=== PATIENT | female | born 1990 | race Caucasian/White ===

== ENCOUNTER 2018-06-30 21:25 | Emergency (ER) | payer OTHER ==
[2018-06-30 21:32] VITALS: BP 144/74
--- NOTE | 2018-06-30 21:39 | ED Physician Documentation ---
PD HPI LOWER EXT INJURY - Stated complaint Stated Complaint: ANKLE INJURY - Chief complaint Chief Complaint: Trauma Ext - History obtained from History obtained from: Patient - History of Present Illness PD HPI LOW EXT INJURY LOCATION: Right (She rolled her right ankle last night and felt a pop. She is able to walk and bear weight but had increased swelling today.) Review of Systems Constitutional: reports: Reviewed and negative Throat: reports: Reviewed and negative Cardiac: reports: Reviewed and negative PD PAST MEDICAL HISTORY - Past Medical History Past Medical History: No - Past Surgical History Past Surgical History: Yes - Present Medications Home Medications: Ambulatory Orders Medication Instructions Recorded Confirmed No Known Home Medications 06/30/18 06/30/18 - Allergies Allergies/Adverse Reactions: Allergies Allergy/AdvReac Type Severity Reaction Status Date / Time No Known Drug Allergies Allergy Verified 06/30/18 21:38 - Social History Does the pt smoke?: Yes Smoking Status: Current every day smoker Does the pt drink ETOH?: Yes Does the pt have substance abuse?: No - Immunizations Immunizations are current?: Yes - POLST Patient has POLST: No PD ED PE NORMAL - Vitals Vital signs reviewed: Yes - General General: Alert and oriented X 3, No acute distress - Extremities Extremities: Other (Right ankle is swollen and tender over the lateral malleolus. No medial malleolar or significant foot tenderness. No proximal fibular tenderness. Normal pedal pulses and sensation.) - Neuro Neuro: Alert and oriented X 3, Normal speech Results - Vitals Vitals: Vital Signs - 24 hr 06/30/18 21:28 Temperature 36.0 C L Heart Rate 81 Respiratory 16 Rate Blood Pressure 144/74 H O2 Saturation 100 Oxygen O2 Source Room air PD MEDICAL DECISION MAKING - Sepsis Event Vital Signs: Vital Signs - 24 hr 06/30/18 21:28 Temperature 36.0 C L Heart Rate 81 Respiratory 16 Rate Blood Pressure 144/74 H O2 Saturation 100 Oxygen O2 Source Room air Departure - Departure Disposition: 01 Home, Self Care Clinical Impression: Right ankle sprain Qualifiers: Encounter type: initial encounter Involved ligament of ankle: calcaneofibular ligament Qualified Code(s): S93.411A - Sprain of calcaneofibular ligament of right ankle, initial encounter Condition: Good Record reviewed to determine appropriate education?: Yes Instructions: ED Sprain Ankle W X Ray Comments: Recheck with your doctor 1-2 weeks if not better. Your blood pressure was elevated today on check into the emergency department. This does not mean that you have hypertension, it is a common phenomenon to come to the emergency department and have elevated blood pressure. I recommend that you see your primary care physician within the week to have it rechecked when you are feeling better.
--- NOTE | 2018-06-30 22:05 | XRAY Report ---
Reason: ankle inj Procedure Date: 06/30/2018 Accession Number: [id number] / [id number] Procedure: XR - Ankle 3 View RT CPT Code: FULL RESULT: EXAM: RIGHT ANKLE RADIOGRAPHY EXAM DATE: 06/30/2018 09:52 PM. CLINICAL HISTORY: Right ankle pain after inversion injury. COMPARISON: None. TECHNIQUE: 3 views. FINDINGS: Bones: Normal. No fractures or bone lesions. Joints: Normal alignment. The ankle mortise is symmetric. No tibiotalar joint effusion. Soft Tissues: Mild lateral soft tissue swelling. IMPRESSION: No acute bony abnormality. RADIA
== END 2018-06-30 22:19 | disposition home or self-care (01) ==
LOC: ED 21:25
DX: S93.411A Sprain of calcaneofibular ligament of right ankle, initial encounter (principal); X50.1XXA Overexertion from prolonged static or awkward postures, initial encounter; W18.30XA Fall on same level, unspecified, initial encounter; Y93.6A Activity, physical games generally associated with school recess, summer camp and children; R03.0 Elevated blood-pressure reading, without diagnosis of hypertension; F17.200 Nicotine dependence, unspecified, uncomplicated
CPT/HCPCS: 99283

== ENCOUNTER 2019-06-18 10:01 | Outpatient (CLI) | payer OTHER ==
[2019-06-18 10:30] LABS: BASOPHILS % (AUTO) 0.2 %; EOSINOPHILS # (AUTO) 0.1 10^3/uL (0.0-0.7); EOSINOPHILS % (AUTO) 0.6 %; HGB - HEMOGLOBIN 12.2 g/dL (12.0-16.0); LYMPHOCYTES # (AUTO) 1.4 10^3/uL (1.5-3.5); LYMPHOCYTES % (AUTO) 17.1 %; MEAN CORPUSCULAR HEMOGLOBIN 29.7 pg (27.0-31.0); MEAN CORPUSCULAR HGB CONC 33.2 g/dL (32.0-36.0); MEAN CORPUSCULAR VOLUME 89.3 fL (81.0-99.0); MEAN PLATELET VOLUME 11.4 fL (7.9-10.8); MONOCYTES # (AUTO) 0.7 10^3/uL (0.0-1.0); MONOCYTES % (AUTO) 8.5 %; NEUTROPHILS # (AUTO) 5.9 10^3/uL (1.5-6.6); NEUTROPHILS % (AUTO) 72.1 %; PLT - PLATELET COUNT 160 10^3/uL (130-450); RED BLOOD COUNT 4.11 10^6/uL (4.20-5.40); RED CELL DISTRIBUTION WIDTH 13.6 % (12.0-15.0); WHITE BLOOD COUNT 8.2 x10^3/uL (4.8-10.8)
[2019-06-18 10:46] LABS: CREATININE 0.6 mg/dL (0.4-1.0)
--- NOTE | 2019-06-18 11:14 | CONSULTATION NOTE ---
Consultation Report: Consult requested for new OB pt, G2,P1 39 week transfer from [facility]. Hx of previous C/S where anesthesia was unable to place effective surgical regional anesthesia for delivery (attempted spinal and epidural multiple times, pt required GETA). Pt has a history of thoracic spine issues requiring multiple steroid injections in the past. Denies lumbar issues. MP2 airway, teeth intact, no other anesthetic issues identified. Pt had questions about what to expect with spinal/epidural as she doesn't really remember much about being in the OR. Explained the process, timeline of events, medications used and why, as well as what to expect with dad in the OR room.
== END 2019-06-18 10:02 | disposition home or self-care (01) ==
LOC: LAB 10:01
PROVIDERS: ATTEND Obstetrics & Gynecology
DX: O34.211 Maternal care for low transverse scar from previous cesarean delivery (principal)
CPT/HCPCS: 36415; 80048; 85025; 86850; 86900; 86901

== ENCOUNTER 2019-06-25 06:31 | Inpatient (IN) | payer OTHER ==
--- NOTE | 2019-06-22 08:28 | PREOP HISTORY & PHYSICAL ---
DATE OF SERVICE: 06/18/2019 Physician: Eitan Villagomez MD IDENTIFICATION: A 28-year-old G3, P1, AB1, female whose due date is 06/29. CHIEF COMPLAINT: Previous section. HISTORY OF PRESENT ILLNESS: Patient had her care done at the [facility] in [place]. Because of restrictions, she is unable to have a repeat section done. She is transferring here. Her due date is 06/29. She started her care at 1 month. She reports having an unrem arkable course. She had a previous section done for distress. There was so me difficulty with anesthesia during the procedure. She has some anxiety regarding this. PAST MEDICAL HISTORY 1. Positive for a bulging disk in the neck. 2. She also had mild preeclampsia with her first . PAST SURGICAL HISTORY 1. section x1. 2. She has also had a first rib resection on the left-hand side for a thoracic outlet. 3. [place] teeth. ALLERGIES: NONE KNOWN. CURRENT MEDICATIONS 1. Baby aspirin daily. 2. vitamins. 3. Lidocaine patch. 4. Tylenol. 5. Tums. HABITS: Patient smokes 8 cigarettes per day and has been counseled that this should be ceased. She denies use of any street or addictive drugs, or THC. 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 FAMILY HISTORY: Positive for type 2 diabetes, heart disease, bipolar disorder. PHYSICAL EXAMINATION GENERAL: Patient is a well-developed, well-nourished white female. She is in no acute distress at t his time. VITAL SIGNS: Blood pressure 122/70. HEENT: Pupils are equal and round. Extraocular muscles are intact. Thyroid is not palpably enlarge d. HEART: Regular rate and rhythm without murmurs. LUNGS: Lung banks are clear without rales or wheezes. BACK: No spinal or CVA tenderness noted. There is a gravid uterus measures 40 cm. heart tone s were heard at 150 beats per minute. She has a Pfannenstiel incision, which is well healed. IMPRESSION 1. A 29-week, G3, P1, AB1 female, currently due date is 06/29/2019. This makes her 38 weeks and 4 d ays. 2. Previous section. 3. History of preeclampsia. PLAN: We will perform repeat low transverse section. Risks and benefits have been explaine d to patient including those, but not limited to bleeding, infection, injury to pelvic organs, which include the uterus, tubes, ovaries, bowel, bladder, ureters. She is aware of the potential for DVT w ith PE as well as postoperative adhesions, which could cause pain, bowel obstruction, and infertility . TD: 06/18/2019 10:01
[2019-06-25] MEDS ORDERED: CITRIC ACID/SODIUM CITRATE 15 ML UDC PO ONE ×2 (06:49→07:16)
[2019-06-25] MEDS ORDERED: LACTATED RINGERS 1,000 ML IV ONE ×4 (06:50→09:31)
--- NOTE | 2019-06-25 06:59 | ANESTHESIA ---
Pre-Anesthesia VS, & Labs - Diagnosis previous c/s - Procedure section Height 6 ft 1 in Weight (kg) 129.274 kg Body Mass Index 26.4 - NPO >8 hours - Is Patient ?: Yes - Lab Results Lab results reviewed: Yes Home Medications and Allergies Active Medications Cefazolin Sodium 2 gm/ Sodium (Chloride) 100 mls @ 200 mls/hr IV ONCE ONE Stop: 06/25/19 07:59 Lactated Ringer's (Lr) 1,000 mls @ 0 mls/hr IV .Q0M TI No Known Home Medications 06/30/18 Allergies/Adverse Reactions: Allergies Allergy/AdvReac Type Severity Reaction Status Date / Time No Known Drug Allergies Allergy Verified 06/30/18 21:38 Anes History & Medical History - Anesthetic History Anesthesia Complications: reports: No previous complications Family history of Anesthesia Complications: Denies Family history of Malignant Hyperthermia: Denies - Medical History Smoking Status: Current every day smoker Psychosocial: reports: Anxiety (with procedures) - Surgical History Gynecologic: section Orthopedic: Other (thoracic vertebrea steroid injections) Exam General: Alert, Oriented x3, Cooperative Dental: WNL Mouth Openin Fingerbreadth Neck Mobility: Normal Mallampati classification: II Respiratory: Lungs clear, Normal breath sounds, Other (mostly dry cough today) Cardiovascular: Regular rate Neurological: Normal speech Mental/Cognitive Status: Alert/Oriented X3, Normal for patient Cognitive Status: Within normal limits Plan Anesthesia Type: General (backup), Spinal Consent for Procedure(s) Verified and Reviewed: Yes Code Status: Attempt Resuscitation ASA classification: 2-Mild systemic disease Is this case an emergency?: No
[2019-06-25] MEDS ORDERED: LACTATED RINGERS 1,000 ML IV SCH ×2 (07:00→10:00)
[2019-06-25 07:22] LABS: BASOPHILS % (AUTO) 0.2 %; EOSINOPHILS # (AUTO) 0.1 10^3/uL (0.0-0.7); EOSINOPHILS % (AUTO) 0.6 %; HGB - HEMOGLOBIN 12.1 g/dL (12.0-16.0); LYMPHOCYTES # (AUTO) 1.8 10^3/uL (1.5-3.5); LYMPHOCYTES % (AUTO) 21.8 %; MEAN CORPUSCULAR HEMOGLOBIN 29.6 pg (27.0-31.0); MEAN CORPUSCULAR HGB CONC 33.3 g/dL (32.0-36.0); MEAN CORPUSCULAR VOLUME 88.8 fL (81.0-99.0); MEAN PLATELET VOLUME 11.1 fL (7.9-10.8); MONOCYTES # (AUTO) 0.7 10^3/uL (0.0-1.0); MONOCYTES % (AUTO) 7.8 %; NEUTROPHILS # (AUTO) 5.7 10^3/uL (1.5-6.6); NEUTROPHILS % (AUTO) 67.9 %; PLT - PLATELET COUNT 154 10^3/uL (130-450); RED BLOOD COUNT 4.09 10^6/uL (4.20-5.40); RED CELL DISTRIBUTION WIDTH 13.5 % (12.0-15.0); WHITE BLOOD COUNT 8.4 x10^3/uL (4.8-10.8)
[2019-06-25] MEDS ORDERED: ceFAZolin 2 GM in SODIUM CHLORIDE 0.9% 100ML 100 ML IV ONE (07:30)
[2019-06-25 09:05] LABS: CALCIUM 9.3 mg/dL (8.5-10.3); CREATININE 0.7 mg/dL (0.4-1.0)
[2019-06-25] MEDS ORDERED: OXYTOCIN/SODIUM CHLORIDE 500 ML IV PRN (09:55)
[2019-06-25] MEDS ORDERED: diphenhydrAMINE 25 MG CAPSULE PO PRN (09:55)
[2019-06-25] MEDS ORDERED: ONDANSETRON 4 MG/2 ML VIAL IVP PRN (09:55)
--- NOTE | 2019-06-25 10:01 | OPERATIVE REPORT ---
Operative Report - General Admit Date: 06/25/19 Procedure Date: 06/25/19 Planned Procedure: repeat LT C/S Pre-Op Diagnosis: term cyesis prior C/S Procedure Performed: repeat LTC/S Post Op Diagnosis: Same - Procedure Note Primary Surgeon: Eitan Villagomez MD Secondary Surgeon: Marichuy Mejia MD Anesthesia Provider: Eleazar Saeed CRNA Anesthesia Technique: Spinal Pathology: none IV Fluids (mL): 1,100 Estimated Blood Loss (mL): 700 Urine Output (mL): 200 Findings: Live female TED, clear amnionic fluid - Other Other Information/Narrative: #[id number]
--- NOTE | 2019-06-25 10:59 | OPERATIVE REPORT ---
DATE OF SERVICE: 06/25/2019 Physician: Eitan Villagomez MD PREOPERATIVE DIAGNOSES 1. Previous section. 2. Term cyesis 39 weeks. POSTOPERATIVE DIAGNOSES 1. Previous section. 2. Term cyesis 39 weeks. PROCEDURE PERFORMED: Repeat low transverse section. SURGEON: Eitan Villagomez MD MEDIA INTERN: Marichuy Bass MD ANESTHESIA: Spinal. COB SAWYER: Eleazar Saeed CRNA ESTIMATED BLOOD LOSS: 700 mL IV FLUIDS: 1100 mL URINE OUTPUT: 200 mL FINDINGS: Live vigorous female infant, vertex presentation, left occiput anterior, clear amniotic fluid, nuchal cord x2. PROCEDURE: Following adequate spinal anesthesia, patient was placed in dorsal lithotomy position. A roll was then placed under the right hip. At this point, a [place] catheter was placed under sterile conditions. She was then prepped and draped in the usual fashion. Timeout was performed in which concerns were addressed. At this point, a Pfannenstiel incision was accomplished using a #10 blade and bandage scissors. The fascia was incised transversely and then carried laterally with Bazan scissors. The rectus was bluntly dissected off the fascia in the midline. It was then split along the midline, and the peritoneal cavity was entered high. Care was taken to avoid injury to the bladder or abdominal contents. At this point, a bladder flap was developed using Metzenbaum scissors. A low transverse uterine incision was accomplished using a #10 blade, bandage scissors, as well as a finger spread technique. The head of the infant was lifted out of the pelvis. There was a nuchal cord x2 encountered. These were reduced and the remainder of the infant was delivered without difficulty. The oropharynx was bulb suctioned as well as nose. The cord was allowed to pulsate for roughly 30 seconds, then clamped with the umbilical clamp as well as a Pean. This was then divided using Bazan scissors. The was handed to the nursery team that was standing by. At this point, cord blood samples were obtained. The uterus was exteriorized and the placenta, which was attached posteriorly was delivered, both manually. The interior portion of the uterus was cleansed with a dry lap. The cervix was dilated with a ring forceps. The uterine incision was closed using a running locking suture of 0 Vicryl with an imbricating layer of 0 Vicryl. Two extra [id number] sutures were used for additional hemostasis. The incision was inspected, and no further bleeding was noted. The cul-de-sac was then tipped forward and then the cul-de-sac was irrigated out. The estimated blood loss was 700 mL at this time. The cul-de-sac, gutters, and the incision were all irrigated with copious amounts of sterile saline. The uterus was delivered back in the abdominal cavity. At this point, the incision was still hemostatic. There was an adhesion of the omentum to the anterior abdominal wall on the left-hand side. This was dissected free, following which the peritoneal defect was closed utilizing 2-0 Vicryl. The peritoneum was closed using 2-0 Vicryl. The rectus was then reapproximated with 2-0 Vicryl. This was irrigated. No further bleeding was noted. The fascia was closed utilizing a looped PDS. Subcutaneous tissue was closed utilizing 2-0 Vicryl and the incision itself was closed using 4-0 Monocryl. Wound VAC was then applied with evidence of good seal. The patient tolerated the procedure well and was taken to recovery in stable condition. Both sponge and needle counts were correct. TD: 06/25/2019 10:33 ESSENCE
[2019-06-25] MEDS ORDERED: METOCLOPRAMIDE 10 MG/2 ML VIAL IVP PRN (11:56)
[2019-06-25] MEDS ORDERED: diphenhydrAMINE INJ 50 MG/ML VIAL IVP PRN (11:57)
[2019-06-25] MEDS: NALBUPHINE 10 MG/ML AMP IVP PRN ×2 (12:08→18:37)
[2019-06-25] MEDS: SODIUM CHLORIDE FLUSH 0.9% 10 ML SYRINGE IVP SCH ×2 (12:08→20:36)
[2019-06-25] MEDS: ACETAMINOPHEN 500 MG TABLET PO SCH ×2 (12:30→20:37)
[2019-06-25] MEDS: KETOROLAC 30 MG/ML VIAL IVP SCH ×3 (13:02→20:36)
[2019-06-25] MEDS: SIMETHICONE CHEW 80 MG TABLET PO SCH ×2 (14:06→18:37)
[2019-06-25] MEDS ORDERED: OXYTOCIN/DEXTROSE 5 % 30 UNIT/500 ML BAG IV PRN (14:14)
[2019-06-25] MEDS: SODIUM CHLORIDE FLUSH 0.9% 10 ML SYRINGE IVP PRN ×2 (15:04→18:38)
[2019-06-25] MEDS: DOCUSATE SODIUM 100 MG CAPSULE PO SCH (20:52)
[2019-06-26] MEDS: ACETAMINOPHEN 500 MG TABLET PO SCH ×3 (01:57→17:56)
[2019-06-26] MEDS: KETOROLAC 30 MG/ML VIAL IVP SCH (03:57)
[2019-06-26 06:18] LABS: BASOPHILS % (AUTO) 0.1 %; EOSINOPHILS % (AUTO) 0.5 %; LYMPHOCYTES # (AUTO) 1.3 10^3/uL (1.5-3.5); LYMPHOCYTES % (AUTO) 16.2 %; MEAN CORPUSCULAR HEMOGLOBIN 29.5 pg (27.0-31.0); MEAN CORPUSCULAR HGB CONC 32.7 g/dL (32.0-36.0); MEAN CORPUSCULAR VOLUME 90.3 fL (81.0-99.0); MEAN PLATELET VOLUME 11.3 fL (7.9-10.8); MONOCYTES # (AUTO) 0.8 10^3/uL (0.0-1.0); MONOCYTES % (AUTO) 9.1 %; NEUTROPHILS % (AUTO) 72.8 %; PLT - PLATELET COUNT 131 10^3/uL (130-450); RED BLOOD COUNT 3.39 10^6/uL (4.20-5.40); RED CELL DISTRIBUTION WIDTH 13.3 % (12.0-15.0); WHITE BLOOD COUNT 8.2 x10^3/uL (4.8-10.8)
[2019-06-26] MEDS: SIMETHICONE CHEW 80 MG TABLET PO SCH ×3 (08:33→21:55)
[2019-06-26] MEDS: DOCUSATE SODIUM 100 MG CAPSULE PO SCH ×2 (08:33→21:55)
--- NOTE | 2019-06-26 09:53 | PROVIDER PROGRESS NOTE ---
Subjective - General Admit Date: 06/25/19 Procedure Date: 06/25/19 Post Op Days: 1 Procedure Performed: LTC/S - Review of Systems Wound/Incisions: positive: Dressing dry and intact General: positive: No symptoms (Pain /10, notes good pain control) Objective - Patient Data Reviewed Vital Signs: Yes Vital Signs: Vital Signs x48h Temp Pulse Resp BP Pulse Ox 06/26/19 08:40 36.5 C 94 18 129/64 97 Weight: Weight 06/24/19 06/25/19 06/26/19 23:59 23:59 23:59 Weight (kg) 129.274 kg Intake & Output: Intake and Output Totals x24h 06/24/19 06/25/19 06/26/19 23:59 23:59 23:59 Intake Total 4061.000 2000 Output Total 1410 850 Balance 2651.000 1150 - Lab Results Lab Results: 06/26/19 06:00 06/25/19 07:06 Other Lab Results: Lab Results x24hrs 06/26/19 Range/Units 06:00 WBC 8.2 (4.8-10.8) x10^3/uL RBC 3.39 L (4.20-5.40) 10^6/uL Hgb 10.0 L (12.0-16.0) g/dL Hct 30.6 L (37.0-47.0) % MCV 90.3 (81.0-99.0) fL MCH 29.5 (27.0-31.0) pg MCHC 32.7 (32.0-36.0) g/dL RDW 13.3 (12.0-15.0) % Plt Count 131 (130-450) 10^3/uL MPV 11.3 H (7.9-10.8) fL Neut # (Auto) 6.0 (1.5-6.6) 10^3/uL Lymph # (Auto) 1.3 L (1.5-3.5) 10^3/uL [place] # (Auto) 0.8 (0.0-1.0) 10^3/uL Eos # (Auto) 0.0 (0.0-0.7) 10^3/uL Baso # (Auto) 0.0 (0.0-0.1) 10^3/uL Absolute Nucleated RBC 0.00 x10^3/uL Nucleated RBC % 0.0 /100WBC - Current Medications Current Medications: Current Medications Generic Name Dose Route Start Last Admin Trade Name Christina PRN Reason Stop Dose Admin Acetaminophen 1,000 mg 06/25/19 10:00 06/26/19 09:49 Tylenol PO 1,000 mg Q8H TI Administration Diphenhydramine HCl 25 mg 06/25/19 09:55 06/25/19 10:02 Benadryl PO 12.5 mg Q6H PRN Administration ITCHING Docusate Sodium 100 mg 06/25/19 21:00 06/26/19 08:33 Colace 100mg Capsule PO 100 mg BID TI Administration Lactated Ringer's 1,000 mls @ 0 mls/hr 06/25/19 07:00 06/25/19 08:18 Lr IV Infused .Q0M TI Infusion TKO Lactated Ringer's 1,000 mls @ 100 mls/hr 06/25/19 10:00 06/25/19 17:17 Lr IV Infused .Q10H TI Infusion Simethicone 80 mg 06/25/19 14:00 06/26/19 08:33 Mylicon PO 80 mg TID TI Administration Sodium Chloride 10 ml 06/25/19 09:55 06/25/19 18:38 Normal Saline Flush 0.9% IVP 10 ml PRN PRN Administration NEEDED PER PROVIDER ORDERS Sodium Chloride 10 ml 06/25/19 17:00 06/25/19 20:36 Normal Saline Flush 0.9% IVP 10 ml 0100,0900,1700 TI Administration - Physical Exam Wound/Incisions: positive: Dressing dry and intact, No drainage General Appearance: positive: No acute distress, Alert Respiratory: positive: Chest non-tender, No respiratory distress, Breath sounds nml Cardiovascular: positive: Regular rate & rhythm, No murmur, No gallop Abdomen: positive: Non-tender, Nml bowel sounds, Mass Back: negative: CVA tenderness (R), CVA tenderness (L) Extremities: negative: Calf tenderness, Sury's sign/cords Impression/Plan - Problem List Problem List: Pt is doing excellent wants to go home. recomends she stays additional day. C/O congestion Claritin
[2019-06-26] MEDS: LORATADINE 10 MG TABLET PO SCH (11:36)
[2019-06-26] MEDS: IBUPROFEN 800 MG TABLET PO PRN (11:36)
[2019-06-26] MEDS: oxyCODONE 5 MG TABLET PO PRN ×2 (17:20→22:01)
[2019-06-26] MEDS: guaiFENesin/DEXTROMETHORPHAN 10 ML UDC PO PRN (23:02)
[2019-06-27] MEDS: IBUPROFEN 800 MG TABLET PO PRN ×2 (01:56→08:33)
[2019-06-27] MEDS: ACETAMINOPHEN 500 MG TABLET PO SCH ×2 (01:56→10:10)
[2019-06-27] MEDS: oxyCODONE 5 MG TABLET PO PRN (08:32)
[2019-06-27] MEDS: guaiFENesin/DEXTROMETHORPHAN 10 ML UDC PO PRN (08:32)
[2019-06-27] MEDS: DOCUSATE SODIUM 100 MG CAPSULE PO SCH (08:33)
[2019-06-27 08:46] VITALS: BP 124/67
--- NOTE | 2019-06-27 09:48 | PROVIDER PROGRESS NOTE ---
Subjective - Prog Note Date Prog Note Date: 06/27/19 Prog Note Time: 09:46 - Subjective Subjective: The patient is doing very well. She is breast-feeding without difficulty. She is ambulating well and tolerating diet well. She has had a bowel movement. Her lochia is very light. She is spotting at most. She does wish to go home today. Objective - Vital Signs/Intake & Output Vital Signs: Vital Signs x48h Temp Pulse Resp BP Pulse Ox 06/27/19 08:44 36.7 C 84 17 124/67 96 06/27/19 02:53 36.9 C 87 18 116/51 L 97 Intake & Output: Intake & Output 06/24/19 06/25/19 06/26/19 06/27/19 23:59 23:59 23:59 23:59 Intake Total 4061.000 2500 Output Total 1410 851 Balance 2651.000 1649 - Lab Results Fish Bones: 06/26/19 06:00 06/25/19 07:06 - Other Results/Comments Other Results/Comments: Laboratory Tests 06/25/19 06/25/19 06/25/19 07:06 07:06 07:06 WBC 8.4 RBC 4.09 L Hgb 12.1 Hct 36.3 L MCV 88.8 MCH 29.6 MCHC 33.3 RDW 13.5 Plt Count 154 MPV 11.1 H Neut # (Auto) 5.7 Lymph # (Auto) 1.8 [place] # (Auto) 0.7 Eos # (Auto) 0.1 Baso # (Auto) 0.0 Absolute Nucleated RBC 0.00 Nucleated RBC % 0.0 Sodium 136 Potassium 4.2 Chloride 104 Carbon Dioxide 20 L Anion Gap 12.0 BUN 11 Creatinine 0.7 Estimated GFR (MDRD) 99 Glucose 87 Calcium 9.3 Blood Type B POSITIVE Antibody Screen NEGATIVE 06/26/19 06:00 WBC 8.2 RBC 3.39 L Hgb 10.0 L Hct 30.6 L MCV 90.3 MCH 29.5 MCHC 32.7 RDW 13.3 Plt Count 131 MPV 11.3 H Neut # (Auto) 6.0 Lymph # (Auto) 1.3 L [place] # (Auto) 0.8 Eos # (Auto) 0.0 Baso # (Auto) 0.0 Absolute Nucleated RBC 0.00 Nucleated RBC % 0.0 Sodium Potassium Chloride Carbon Dioxide Anion Gap BUN Creatinine Estimated GFR (MDRD) Glucose Calcium Blood Type Antibody Screen Lungs: Lungs clear to auscultation bilaterally without wheezes, rales or Heart: Heart has regular rate and rhythm without murmur Abdomen: The abdomen is soft, pliable and nontender. The uterus is palpated 2 fingerbreadths below the umbilicus. It is nontender.She has normoactive bowel sounds. Incision: The patient's wound VAC is in place.No unusual discharges are noted. Assessment/Plan - Problem List (1) Impression: day #2: Stable Plan: The patient will be allowed to be discharged home. She was discharged home with both written and verbal instructions which included such things as: 1. She is to forego any lifting, tampons, douching or intercourse 2. She is to call if she has temperatures greater than 100.4, heavy vaginal bleeding or's signs of infection on the incision 3. She may discontinue the wound VAC if the batteries cease if not she is to leave this on until she comes in for an office visit unless she is having problems. At that time she will call the office for instructions 4. She is to continue to increase her fluids and continue her vitamins. 5. She is to use ibuprofen 600 mg p.o. 3 times daily as her first line of pain control 6. She was given a prescription for hydrocodone/acetaminophen 5/325 1 p.o. every 4 hours as needed pain #20 with no refills. She is to use this to supplement the ibuprofen 7. As long as she does well we will see her in the office in 1 week in follow- up.
[2019-06-27] MEDS: LORATADINE 10 MG TABLET PO SCH (10:07)
[2019-06-27] MEDS: SIMETHICONE CHEW 80 MG TABLET PO SCH (10:11)
[2019-06-27] MEDS ORDERED: fentaNYL 100 MCG/2 ML VIAL IVP ONE (11:59)
[2019-06-27] MEDS ORDERED: MORPHINE PF 10 MG/10 ML AMP EPI ONE (11:59)
--- NOTE | 2019-06-27 12:02 | Labor Flowsheet ---
Labor Flowsheet Datetime Report Generated by CPN: 06/27/2019 12:01 Datetime: 06/25/2019 07:30 Stage of : Labor UTERINE ACTIVITY Monitor Mode: External Frequency (min): 2-7 Quality: Mild Duration (sec): 60-80 Pattern: Normal: <= 5 Contractions in 10 Minutes Resting Tone (Palpate): Relaxed ASSESSMENT A Monitor Mode: External US FHR Baseline Rate : 140 Variability: Moderate 6-25 bpm Accelerations: 15X15 Decelerations: None Category: Category I
--- NOTE | 2019-06-27 13:49 | DISCHARGE SUMMARY ---
Physician: Santo Garcia DO DATE OF ADMISSION: 06/25/2019 DATE OF DISCHARGE: 06/27/2019 ADMIT DIAGNOSES 1. Term intrauterine . 2. Previous section. DISCHARGE DIAGNOSIS: Repeat section. PROCEDURE: Repeat low transverse section. LABORATORIES: Admit CBC revealed WBCs at 8.4, RBCs of 4.09, hemoglobin 12.1, hematocrit 36.3 with 15 4 platelets. Discharge CBC revealed WBC is 8.2, RBCs of 3.39, hemoglobin 10, hematocrit 30.6 with 131 platelets. HOSPITAL COURSE: Patient was admitted to [facility] and on 06/25/2019. She was t aken to surgery, where she delivered a viable female and one is referred to the operative not e for full details. She was taken to her room in satisfactory condition. Throughout the rest of the day and evening, she actually recovered quite well. She was ambulating well, tolerating diet well. Lochia was slowing. By the a.m. of her first postop day, she was continuing to do well. Vital sign s were stable. She was afebrile. Lochia was light. The dressing was clean, dry and intact. On her second postop day, she again was doing very well. Vital signs are stable. She was afebrile. The u terus was firm and nontender, 2 fingerbreadths below the umbilicus. The dressing had a wound VAC on it and again was clean and dry. Her lochia was quite light. She was spotting at most. She was breas tfeeding without difficulty. She had a bowel movement. She was anxious for discharge. It was felt that the patient was stable and could be safely discharged home. DISCHARGE INSTRUCTIONS Patient discharged home with written and verbal instructions including such things as 1. She is to forego any lifting, tampons, douching or intercourse. 2. She is to report any temperatures greater than 100.4, heavy vaginal bleeding or signs of wound in fection. 3. She will leave the wound VAC on for 1 week. She does know that if the wound has pain or problems , she can remove it at any time and she will remove it if the battery runs out. Other than that, she will wait until she comes in the office and this will be removed then. 4. She will use ibuprofen 600 mg p.o. t.i.d. as her first line of pain medication. 5. She will use hydrocodone/acetaminophen 5/325 one p.o. q.4 hours p.r.n. pain, to supplement the ib uprofen. She was given a prescription for 20 tablets. 6. She will continue to increase her fluids. 7. She is not to drive a car for the next 2 weeks. 8. As long as she does well, she will be seen in the office in 1 week in followup. TD: 06/27/2019 10:21
== END 2019-06-27 12:00 | disposition home or self-care (01) | DRG 788 ==
LOC: FBP 06:31
PROVIDERS: ADMIT Obstetrics & Gynecology; ATTEND Obstetrics & Gynecology
PROC: 10D00Z1 Extraction of Products of Conception, Low, Open Approach (ICD-10-PCS; principal; 2019-06-25 07:30)
DX: O34.211 Maternal care for low transverse scar from previous cesarean delivery (principal); N85.8 Other specified noninflammatory disorders of uterus; O69.82X0 Labor and delivery complicated by other cord entanglement, without compression, not applicable or unspecified; O99.334 Smoking (tobacco) complicating childbirth; F17.210 Nicotine dependence, cigarettes, uncomplicated; O99.89 Other specified diseases and conditions complicating pregnancy, childbirth and the puerperium; M50.80 Other cervical disc disorders, unspecified cervical region; N73.6 Female pelvic peritoneal adhesions (postinfective); Z3A.39 39 weeks gestation of pregnancy; Z37.0 Single live birth; Z79.82 Long term (current) use of aspirin; Z87.59 Personal history of other complications of pregnancy, childbirth and the puerperium
CPT/HCPCS: 36415; 80048; 85025; 86850; 86900; 86901; A9270; J2274; J2300; J7120